=== PATIENT | male | born 1960 | race Caucasian/White ===

== ENCOUNTER 2020-03-17 08:16 | Emergency (ER) | payer MEDICARE, OTHER ==
[~2020-03-17] VITALS: Ht 157.5 cm; Wt 77.3 kg
[2020-03-17] MEDS ORDERED: TETanus/Pertussis (Acell)/Diphther VAC/PF (Tdap-Adult) 0.5ml syringe IMVAC ONE (08:50)
[2020-03-17 09:28] VITALS: BP 115/72
== END 2020-03-17 09:28 | disposition home or self-care (01) ==
LOC: ER 08:17
DX: T14.8XXA Other injury of unspecified body region, initial encounter (principal); X58.XXXA Exposure to other specified factors, initial encounter; Y93.89 Activity, other specified; Y92.89 Other specified places as the place of occurrence of the external cause; Y99.8 Other external cause status; Z88.5 Allergy status to narcotic agent
CPT/HCPCS: 73630; 90471; 90715; 99283

== ENCOUNTER 2022-07-13 11:20 | Day surgery (SDC) | payer MEDICARE, OTHER ==
[2022-07-08 08:43] LABS: BASOPHILS % (AUTO) 0.6 % (0-1); EOSINOPHILS # (AUTO) 0.3 X10'3 (0-0.9); EOSINOPHILS % (AUTO) 3.4 % (0-6); HEMATOCRIT 49.9 % (42.0-52.0); HEMOGLOBIN 16.7 g/dl (14.0-17.9); LYMPHOCYTES # (AUTO) 1.2 X10'3 (1.1-4.8); LYMPHOCYTES % (AUTO) 15.8 % (21-51); MEAN CORPUSCULAR HEMOGLOBIN 31.1 PG (27.0-31.0); MEAN CORPUSCULAR HGB CONC 33.6 g/dL (33.0-36.5); MEAN CORPUSCULAR VOLUME 92.6 FL (78-98); MEAN PLATELET VOLUME 8.1 FL (7.4-10.4); MONOCYTES # (AUTO) 0.9 X10'3 (0-0.9); MONOCYTES % (AUTO) 11.9 % (2-12); NEUTROPHILS # (AUTO) 5.2 X10'3 (1.8-7.7); NEUTROPHILS % (AUTO) 68.3 % (42-75); PLATELET COUNT 181 X10'3 (140-440); RED BLOOD COUNT 5.38 X10'6 (4.70-6.10); RED CELL DISTRIBUTION WIDTH 14.8 % (11.5-14.5); WHITE BLOOD COUNT 7.6 X10'3 (4.5-11.0)
[2022-07-08 09:04] LABS: ALBUMIN 3.7 G/DL (3.4-5.0); ANION GAP 4 (8-16); BLOOD UREA NITROGEN 13 MG/DL (7-18); BUN/CREATININE RATIO 10.9 (5.4-32.0); CALCIUM 9.1 MG/DL (8.5-10.1); CHLORIDE 101 MMOL/L (99-107); CREATININE 1.19 MG/DL (0.60-1.10); GLUCOSE 108 MG/DL (70-104); POTASSIUM 4.2 MMOL/L (3.5-5.1); SODIUM 136 MMOL/L (135-145); eGFR 62 ML/MIN
[2022-07-08 09:08] LABS: APTT 28 SECONDS (22-32)
[~2022-07-13] VITALS: Ht 157.5 cm; Wt 80.2 kg
[2022-07-13] VITALS (10 sets, daily range): BP systolic 92–127; BP diastolic 55–74
[2022-07-13] MEDS ORDERED: diphenhydrAMINE 25mg capsule PO PRN (11:35)
[2022-07-13] MEDS ORDERED: LORazepam 0.5 MG tablet PO PRN (11:35)
[2022-07-13] MEDS ORDERED: normal saline 1,000 ML IV SCH (11:35)
[2022-07-13] MEDS ORDERED: atenolol PO (11:39)
[2022-07-13] MEDS ORDERED: TEST200V33 IM (11:39)
[2022-07-13] MEDS ORDERED: ASPI81TA52 PO (11:39)
[2022-07-13] MEDS ORDERED: ATOR40TA PO (11:39)
[2022-07-13] MEDS ORDERED: MULT-1085 PO (11:39)
[2022-07-13] MEDS ORDERED: CHOL20004 PO (11:39)
[2022-07-13] MEDS ORDERED: heparin 1,000unit/ml 10ml vial 10 ML ONE (14:43)
[2022-07-13] MEDS ORDERED: iohexol 350MG/ML 100ml bottle IV ONE (14:43)
[2022-07-13] MEDS ORDERED: LIDOcaine 1% (10mg/ml) 2ml vial ONE (14:43)
[2022-07-13] MEDS ORDERED: verapamil 2.5 mg/ml inj IV ONE (14:43)
[2022-07-13] MEDS ORDERED: nitroGLYCERIN-Tridil 50MG/D5W 250 ML IV ONE (14:43)
[2022-07-13] MEDS ORDERED: midazolam 1 mg/ML 2ml injection ONE (14:43)
[2022-07-13] MEDS ORDERED: fentaNYL/PF 50MCG/1 ML 2ML syringe ONE (14:44)
[2022-07-13] MEDS ORDERED: ondansetron/PF 4mg/2ml inj IV PRN (15:35)
[2022-07-13] MEDS ORDERED: proCHLORperazine 10 MG/2 ml inj IV PRN (15:35)
[2022-07-13] MEDS ORDERED: OXAZEpam 15mg capsule PO PRN (15:35)
== END 2022-07-13 17:25 | disposition home or self-care (01) ==
LOC: SSTAY O 11:20
PROVIDERS: ATTEND Student in an Organized Health Care Education/Training Program
DX: R07.89 Other chest pain (principal); I25.10 Atherosclerotic heart disease of native coronary artery without angina pectoris; J44.9 Chronic obstructive pulmonary disease, unspecified; I10 Essential (primary) hypertension; Z86.73 Personal history of transient ischemic attack (TIA), and cerebral infarction without residual deficits; G89.29 Other chronic pain; Z88.5 Allergy status to narcotic agent; Z79.899 Other long term (current) drug therapy; Z79.82 Long term (current) use of aspirin
CPT/HCPCS: 36415; 80048; 85025; 85610; 85730; 93005; 93458; 99152; C1769; C1894; J1644; J2250; J3010; J3490; J7030; Q0163; Q9967; A6258; A6402